=== PATIENT | female | born 1940 | race American Indian/Alaskan Native ===

== ENCOUNTER 2018-05-23 01:07 | Emergency (ER) | payer OTHER ==
[2018-05-23] MEDS ORDERED: ASPIRIN PO ONE (01:31)
[2018-05-23 02:05] LABS: Basophils % (Auto) 0.6 % (0.0-1.8); Eosinophils # (Auto) 0.1 K/mm3 (0.0-0.4); Eosinophils % (Auto) 1.9 % (0.0-4.3); Hematocrit 37.8 % (30.3-42.9); Lymphocytes # (Auto) 1.9 K/mm3 (1.2-5.4); Lymphocytes % (Auto) 28.3 % (13.4-35.0); Mean Corpuscular HGB Conc 32 % (30-34); Mean Corpuscular Volume 79 fl (79-97); Monocytes # (Auto) 0.3 K/mm3 (0.0-0.8); Monocytes % (Auto) 4.7 % (0.0-7.3); Platelet Count 267 K/mm3 (140-440); Red Blood Count 4.78 M/mm3 (3.65-5.03)
[2018-05-23 02:22] LABS: BUN/Creatinine Ratio 20; Blood Urea Nitrogen 12 mg/dL (7-17); Calcium 9.9 mg/dL (8.4-10.2); Hemolysis Index 2
[2018-05-23 02:25] LABS: INR 0.9 (0.87-1.13); Partial Thromboplastin Time 21.9 Sec. (24.2-36.6)
[2018-05-23] MEDS ORDERED: K-DUR PO ONE (03:15)
--- NOTE | 2018-05-23 03:31 | Emergency Department Report ---
ED Dizziness HPI - General Chief Complaint: High BP Stated Complaint: LIGHT HEADED/BLOOD PRESSURE Time Seen by Provider: 05/23/18 02:17 Source: patient Mode of arrival: Ambulatory Limitations: No Limitations - History of Present Illness Initial Comments: 78-year-old female with a past medical history of hypertension and arthritis presents to the Hospital complaining of lightheadedness and woozy feeling this evening. Similar symptoms in the past for her blood pressure was elevated. She attempted to go to the fire station to have her blood pressure checked but they were closed. She denies headache, chest pain, shortness of breath, blurred vision, focal numbness, focal weakness, nausea, vomiting, melena, hematochezia, or dysuria. Patient is compliant with her blood pressure medication. She did state that today she went to a restaurant with her druze group where she ate a lot more salty food than usual and then took leftovers home and ate them this evening. At time of my ED evaluation blood pressure has spontaneously improved without additional treatment. Patient reports feeling better. - Related Data Home Medications Medication Instructions Recorded Confirmed Last Taken Amlodipine Besylate/Benazepril 1 tab PO DAILY 04/18/14 07/30/15 08/07/15 08:10 [Lotrel 10-20 mg] Metoprolol Xl [Metoprolol 100 mg PO QDAY 04/18/14 07/30/15 08/07/15 08:10 SUCCINATE ER TAB] Triamter/Hctz 37.5-25 mg 1 tab PO DAILY 04/18/14 08/07/15 08/07/15 08:10 [Maxzide-25] Dorzolamide HCl/Timolol Maleat 1 drop OP Q12H 07/30/15 07/30/15 08/07/15 08:10 [Dorzolamide-Timolol Eye Drops] Previous Rx's Medication Instructions Recorded Last Taken Type Cyclobenzaprine [Flexeril] 10 mg PO TID PRN #30 tablet 02/14/16 Unknown Rx Ibuprofen [Motrin 800 MG tab] 800 mg PO Q8HR PRN #30 tablet 02/14/16 Unknown Rx Allergies Allergy/AdvReac Type Severity Reaction Status Date / Time Penicillins Allergy Rash Verified 04/18/14 23:52 codeine AdvReac Nausea Verified 04/18/14 23:52 ED Review of Systems ROS: Stated complaint: LIGHT HEADED/BLOOD PRESSURE Other details as noted in HPI Comment: All other systems reviewed and negative ED Past Medical Hx - Past Medical History Previous Medical History?: Yes Hx Hypertension: Yes (FOR 20+ YRS, DR. SEAY- PCP) Hx Heart Attack/AMI: No Hx Renal Disease: No Hx Arthritis: Yes (IN HANDS) Hx Seizures: No Hx Asthma: No Hx HIV: No - Surgical History Hx Breast Surgery: Yes (LEFT BREAST BX 04/2015) Additional Surgical History: hysterectomy 1986. left breast biopsy - Social History Smoking Status: Never Smoker Substance Use Type: None - Medications Home Medications: Home Medications Medication Instructions Recorded Confirmed Last Taken Type Amlodipine Besylate/Benazepril 1 tab PO DAILY 04/18/14 07/30/15 08/07/15 08:10 History [Lotrel 10-20 mg] Metoprolol Xl [Metoprolol 100 mg PO QDAY 04/18/14 07/30/15 08/07/15 08:10 History SUCCINATE ER TAB] Triamter/Hctz 37.5-25 mg 1 tab PO DAILY 04/18/14 08/07/15 08/07/15 08:10 History [Maxzide-25] Dorzolamide HCl/Timolol Maleat 1 drop OP Q12H 07/30/15 07/30/15 08/07/15 08:10 History [Dorzolamide-Timolol Eye Drops] Cyclobenzaprine [Flexeril] 10 mg PO TID PRN #30 tablet 02/14/16 Unknown Rx Ibuprofen [Motrin 800 MG tab] 800 mg PO Q8HR PRN #30 tablet 02/14/16 Unknown Rx ED Physical Exam - General Limitations: No Limitations - Other Other exam information: General: No limitations, patient is alert in no acute distress Head exam: Atraumatic, normocephalic Eyes exam: Normal appearance, pupils equal reactive to light, extraocular movements intact, mild bilateral lateral fatigue nystagmus. ENT: Moist mucous membrane Neck exam: Normal inspection, full range of motion, no meningismus nontender Respiratory exam: Clear to auscultation bilateral, no wheezes, rales, crackles Cardiovascular: Normal rate and rhythm Abdomen: Soft, nondistended, and nontender, with normal bowel sounds, no rebound, or guarding Extremity: Full range of motion normal inspection no deformity Back: Normal Inspection, full range of motion, no tenderness Neurologic: Alert, oriented x3, cranial nerves intact, no motor or sensory deficit, [id number] function intact. Psychiatric: normal affect, normal mood Skin: Warm, dry, intact ED Course Vital Signs 05/23/18 05/23/18 05/23/18 01:20 01:29 02:02 Temperature 98.3 F Pulse Rate 94 H 94 H Respiratory 20 20 18 Rate Blood Pressure 165/111 Blood Pressure 168/98 [Left] Blood Pressure 165/111 [Right] O2 Sat by Pulse 99 99 98 Oximetry 05/23/18 05/23/18 05/23/18 02:09 02:16 02:20 Temperature Pulse Rate 88 75 Respiratory 14 10 L 16 Rate Blood Pressure 156/85 Blood Pressure [Left] Blood Pressure [Right] O2 Sat by Pulse 99 99 Oximetry 05/23/18 05/23/18 05/23/18 02:46 03:00 03:16 Temperature Pulse Rate 85 71 Respiratory 19 13 Rate Blood Pressure 143/77 145/77 145/77 Blood Pressure [Left] Blood Pressure [Right] O2 Sat by Pulse 98 97 97 Oximetry 05/23/18 03:46 Temperature Pulse Rate Respiratory Rate Blood Pressure 137/76 Blood Pressure [Left] Blood Pressure [Right] O2 Sat by Pulse 97 Oximetry ED Medical Decision Making - Lab Data Result diagrams: 05/23/18 01:43 05/23/18 01:43 Lab Results 05/23/18 05/23/18 05/23/18 Range/Units 01:43 01:43 01:43 WBC 6.8 (4.5-11.0) K/mm3 RBC 4.78 (3.65-5.03) M/mm3 Hgb 12.0 (10.1-14.3) gm/dl Hct 37.8 (30.3-42.9) % MCV 79 (79-97) fl MCH 25 L (28-32) pg MCHC 32 (30-34) % RDW 16.0 H (13.2-15.2) % Plt Count 267 (140-440) K/mm3 Lymph % (Auto) 28.3 (13.4-35.0) % [place] % (Auto) 4.7 (0.0-7.3) % Eos % (Auto) 1.9 (0.0-4.3) % Baso % (Auto) 0.6 (0.0-1.8) % Lymph # 1.9 (1.2-5.4) K/mm3 [place] # 0.3 (0.0-0.8) K/mm3 Eos # 0.1 (0.0-0.4) K/mm3 Baso # 0.0 (0.0-0.1) K/mm3 Seg Neutrophils % 64.5 (40.0-70.0) % Seg Neutrophils # 4.4 (1.8-7.7) K/mm3 PT 12.5 (12.2-14.9) Sec. INR 0.90 (0.87-1.13) APTT 21.9 L (24.2-36.6) Sec. Sodium 137 (137-145) mmol/L Potassium 3.4 L (3.6-5.0) mmol/L Chloride 96.8 L (98-107) mmol/L Carbon Dioxide 28 (22-30) mmol/L Anion Gap 16 mmol/L BUN 12 (7-17) mg/dL Creatinine 0.6 L (0.7-1.2) mg/dL Estimated GFR > 60 ml/min BUN/Creatinine Ratio 20 % Glucose 97 (65-100) mg/dL Calcium 9.9 (8.4-10.2) mg/dL Troponin T < 0.010 (0.00-0.029) ng/mL - Medical Decision Making BP spontaneously improved without any medication and patient feeling better. Increased BP is likely related to dietary changes/increased salt intake. Labs unremarkable with exception of mild hypokalemia. Patient sees associated by mouth potassium in the ED. EKG is unchanged from previous. Patient will be discharged home with PMD follow-up. - Differential Diagnosis hypertensive emergency, CVA, anemia, dehydration, arrhythmia Critical Care Time: No Critical care attestation.: If time is entered above; I have spent that time in minutes in the direct care of this critically ill patient, excluding procedure time. ED Disposition Clinical Impression: Transient hypertension, Lightheaded Disposition: DC-01 TO HOME OR SELFCARE Is pt being admited?: No Does the pt Need Aspirin: No Condition: Stable Instructions: Hypertension (ED), Lightheadedness (ED) Additional Instructions: Continue your medication as prescribed. Decrease your salt intake. Follow up with your doctor. Return if symptoms worsen as indicated by your discharge instructions Referrals: PRIMARY CARE, [Primary Care Provider] - 3-5 Days Time of Disposition: 04:18 - Assessment Assessment Interval: Baseline - Level of Consciousness 1a. Level of Consciousness: alert/keenly responsive - LOC Questions 1b. LOC Questions: answers both correctly - LOC Command 1c. LOC Commands: performs tasks correctly - Best Gaze 2. Best Gaze: normal - Visual 3. Visual: no visual loss - Facial Palsy 4. Facial Palsy: normal symmetrical movement - Motor Arm 5b. Motor Arm Right: no drift 5a. Motor Arm Left: no drift - Motor Leg 6b. Motor Leg Right: no drift 6a. Motor Leg Left: no drift - Limb Ataxia 7. Limb Ataxia: absent - Sensory 8. Sensory: normal - Best Language 9. Best Language: no aphasia - Dysarthria 10. Dysarthria: normal - Extinction and Inattention 11. Extinction/Inattention: no abnormality - Scoring Total Score: 0 Stroke Severity: No Stroke Symptoms
[2018-05-23 04:32] VITALS: BP 158/86
== END 2018-05-23 04:30 | disposition home or self-care (01) ==
LOC: ED 01:07
DX: I10 Essential (primary) hypertension (principal); M19.042 Primary osteoarthritis, left hand; M19.041 Primary osteoarthritis, right hand; Z90.710 Acquired absence of both cervix and uterus; Z88.0 Allergy status to penicillin; Z88.5 Allergy status to narcotic agent
CPT/HCPCS: 36415; 80048; 84484; 85025; 85610; 85730; 93005; 93010

== ENCOUNTER 2019-05-28 18:13 | Emergency (ER) | payer OTHER ==
--- NOTE | 2019-05-28 19:07 | Event Note ---
ED Screening Note Date of service: 05/28/19 Time: 19:02 ED Screening Note: Pt complains of right lower back/hip pain x this morning denies injury hx of breast cancer This initial assessment/diagnostic orders/clinical plan/treatment(s) is/are subject to change based on patients health status, clinical progression and re- assessment by fellow clinical providers in the ED. Further treatment and workup at subsequent clinical providers discretion. Patient/guardian urged not to elope from the ED as their condition may be serious if not clinically assessed and managed. Initial orders include: XR
[2019-05-28] MEDS ORDERED: IBUPROFEN 600 MG TAB PO ONE ×2 (19:08→19:13)
--- NOTE | 2019-05-28 19:51 | XRay Report ---
LEFT HIP 3 VIEWS INDICATION / CLINICAL INFORMATION: MAIN: rt hip pain no injury COMPARISON: None available. FINDINGS: BONES / JOINT(S): No acute fracture or subluxation. Well-corticated ossification adjacent to the grea ter trochanter. No significant arthritis. SOFT TISSUES: No significant abnormality. ADDITIONAL FINDINGS: None. Signer Name: Dioni Eldrideg MD Signed: 05/28/2019 7:46 PM Workstation Name: [id number]
[2019-05-28] MEDS ORDERED: predniSONE 20 MG TAB PO ONE (23:14)
[2019-05-28] MEDS ORDERED: ACETAMINOPHEN 500 MG TAB PO ONE (23:15)
--- NOTE | 2019-05-29 00:27 | Emergency Department Report ---
ED Extremity Problem HPI - General Chief complaint: Extremity Problem,Nontraumatic Stated complaint: RT HIP PAIN Time Seen by Provider: 05/28/19 19:02 Source: patient Mode of arrival: Ambulatory Limitations: No Limitations - History of Present Illness Initial comments: Patient is a 79-year-old -[place] female with a history of hypertension and degenerative joint disease who presents to the ED with complaint of acute onset persistent severe nontraumatic right hip pain for the last 2 days. Patient states that the pain is worse with any movement or even at rest. Patient denies fall, traumatic injury, heavy lifting, nausea, vomiting, dizziness, chest pain, shortness of breath, fever, chills, dysuria, urinary frequency and urgency, numbness and tingling or weakness of lower extremities bilaterally. Patient states that her house has 14 stairs and that she has to climb up and down the stairs daily. MD Complaint: extremity pain (right hip pain) -: Sudden, days(s) (2) Location: right, lower extremity (hip) History of Same: No -: Yes arthralgia (right hip) Radiation: proximal Severity scale (0 -10): 7 Quality: aching, sharp, constant Consistency: constant Improves with: rest Worsens with: weight bearing, walking, exertion, palpation Associated Symptoms: denies other symptoms, arthralgias (right hip). denies: chest pain, shortness of breath - Related Data Home Medications Medication Instructions Recorded Confirmed Last Taken Amlodipine Besylate/Benazepril 1 tab PO DAILY 04/18/14 07/30/15 08/07/15 08:10 [Lotrel 10-20 mg] Metoprolol Xl [Metoprolol 100 mg PO QDAY 04/18/14 07/30/15 08/07/15 08:10 SUCCINATE ER TAB] Triamter/Hctz 37.5-25 mg 1 tab PO DAILY 04/18/14 08/07/15 08/07/15 08:10 [Maxzide-25] Dorzolamide HCl/Timolol Maleat 1 drop OP Q12H 07/30/15 07/30/15 08/07/15 08:10 [Dorzolamide-Timolol Eye Drops] Previous Rx's Medication Instructions Recorded Last Taken Type Cyclobenzaprine [Flexeril] 10 mg PO TID PRN #30 tablet 02/14/16 Unknown Rx Ibuprofen [Motrin 800 MG tab] 800 mg PO Q8HR PRN #30 tablet 02/14/16 Unknown Rx Meloxicam [Mobic] 7.5 mg PO QDAY #30 tablet 05/29/19 Unknown Rx Ondansetron [Zofran Odt] 4 mg PO Q6H PRN #20 tab.rapdis 05/29/19 Unknown Rx predniSONE [Deltasone] 40 mg PO QDAY #10 tab 05/29/19 Unknown Rx traMADoL [Ultram] 50 mg PO Q6HR PRN #12 tablet 05/29/19 Unknown Rx Allergies Allergy/AdvReac Type Severity Reaction Status Date / Time Penicillins Allergy Rash Verified 04/18/14 23:52 codeine AdvReac Nausea Verified 04/18/14 23:52 ED Review of Systems ROS: Stated complaint: RT HIP PAIN Other details as noted in HPI Constitutional: denies: chills, fever Eyes: denies: eye pain, eye discharge, vision change ENT: denies: ear pain, throat pain Respiratory: denies: cough, shortness of breath, wheezing Cardiovascular: denies: chest pain, palpitations Endocrine: no symptoms reported Gastrointestinal: denies: abdominal pain, nausea, diarrhea Genitourinary: denies: urgency, dysuria, discharge Musculoskeletal: arthralgia (right hip pain), myalgia. denies: back pain, joint swelling Skin: denies: rash, lesions Neurological: denies: headache, weakness, paresthesias Psychiatric: denies: anxiety, depression Hematological/Lymphatic: denies: easy bleeding, easy bruising ED Past Medical Hx - Past Medical History Hx Hypertension: Yes (FOR 20+ YRS, DR. SEAY- PCP) Hx Arthritis: Yes (IN HANDS) Hx HIV: No - Surgical History Hx Breast Surgery: Yes (LEFT BREAST BX 04/2015) Additional Surgical History: hysterectomy 1986. left breast biopsy - Social History Smoking Status: Never Smoker Substance Use Type: None - Medications Home Medications: Home Medications Medication Instructions Recorded Confirmed Last Taken Type Amlodipine Besylate/Benazepril 1 tab PO DAILY 04/18/14 07/30/15 08/07/15 08:10 History [Lotrel 10-20 mg] Metoprolol Xl [Metoprolol 100 mg PO QDAY 04/18/14 07/30/15 08/07/15 08:10 History SUCCINATE ER TAB] Triamter/Hctz 37.5-25 mg 1 tab PO DAILY 04/18/14 08/07/15 08/07/15 08:10 History [Maxzide-25] Dorzolamide HCl/Timolol Maleat 1 drop OP Q12H 07/30/15 07/30/15 08/07/15 08:10 History [Dorzolamide-Timolol Eye Drops] Cyclobenzaprine [Flexeril] 10 mg PO TID PRN #30 tablet 02/14/16 Unknown Rx Ibuprofen [Motrin 800 MG tab] 800 mg PO Q8HR PRN #30 tablet 02/14/16 Unknown Rx Meloxicam [Mobic] 7.5 mg PO QDAY #30 tablet 05/29/19 Unknown Rx Ondansetron [Zofran Odt] 4 mg PO Q6H PRN #20 tab.rapdis 05/29/19 Unknown Rx predniSONE [Deltasone] 40 mg PO QDAY #10 tab 05/29/19 Unknown Rx traMADoL [Ultram] 50 mg PO Q6HR PRN #12 tablet 05/29/19 Unknown Rx ED Physical Exam - General Limitations: No Limitations General appearance: alert, in no apparent distress - Head Head exam: Present: atraumatic, normocephalic, normal inspection - Eye Eye exam: Present: normal appearance, PERRL, EOMI Pupils: Present: normal accommodation - ENT ENT exam: Present: normal exam, normal orophraynx, mucous membranes moist, TM's normal bilaterally, normal external ear exam - Neck Neck exam: Present: normal inspection, full ROM - Respiratory Respiratory exam: Present: normal lung sounds bilaterally. Absent: respiratory distress, wheezes, rales, rhonchi, chest wall tenderness, decreased breath sounds, prolonged expiratory - Cardiovascular Cardiovascular Exam: Present: regular rate, normal rhythm, normal heart sounds. Absent: systolic murmur, diastolic murmur, rubs, gallop - GI/Abdominal GI/Abdominal exam: Present: soft, normal bowel sounds. Absent: tenderness, guarding, rebound, hyperactive bowel sounds, hypoactive bowel sounds, organomegaly, mass - Extremities Exam Extremities exam: Present: normal inspection, tenderness (palpable right hip tenderness with limited range of motion due to pain), normal capillary refill. Absent: full ROM (Limited range of motion due to pain on the right hip), pedal edema, joint swelling, calf tenderness - Back Exam Back exam: Present: normal inspection, full ROM. Absent: tenderness, CVA tenderness (R), CVA tenderness (L), muscle spasm, paraspinal tenderness, vertebral tenderness - Neurological Exam Neurological exam: Present: alert, oriented X3, CN II-XII intact, normal gait, r eflexes normal - Psychiatric Psychiatric exam: Present: normal affect, normal mood - Skin Skin exam: Present: warm, dry, intact, normal color. Absent: rash ED Course Vital Signs 05/28/19 05/28/19 05/28/19 19:03 19:37 20:37 Temperature 98.3 F Pulse Rate 87 Respiratory 18 18 16 Rate Blood Pressure 143/81 O2 Sat by Pulse 99 Oximetry 05/28/19 23:40 Temperature Pulse Rate Respiratory 16 Rate Blood Pressure O2 Sat by Pulse Oximetry ED Medical Decision Making - Radiology Data Radiology results: report reviewed, image reviewed Right hip x-ray shows no acute fractures or subluxations or degenerative joint disease. - Medical Decision Making This is a 79-year-old -[place] female who presented to the ED with acute onset persistent nontraumatic right hip pain for the last 2 days. In the ED, patient is alert and oriented 3 and is not in any distress but appears to be in significant pain. Right hip x-ray shows no acute fractures or subluxations or significant degenerative joint disease. Patient was treated for pain in the ED and on reevaluation, patient's pain is moderately controlled. Patient's symptoms are likely due to acute bursitis of the right hip and muscle strength. Patient was discharged home on pain medications and advised to follow-up with her primary care physician in 5-7 days for reevaluation or return to the ED immediately if symptoms get worse. - Differential Diagnosis Hip bursitis; Muscle strain; DJD; Hip fracture; Muscle spasm Critical care attestation.: If time is entered above; I have spent that time in minutes in the direct care of this critically ill patient, excluding procedure time. ED Disposition Clinical Impression: Bursitis of right hip Qualifiers: Hip bursitis location: unspecified Qualified Code(s): M70.71 - Other bursitis of hip, right hip Strain of muscle of right hip Qualifiers: Encounter type: initial encounter Qualified Code(s): S76.011A - Strain of muscle, fascia and tendon of right hip, initial encounter Disposition: TO HOME OR SELFCARE Is pt being admited?: No Does the pt Need Aspirin: No Condition: Stable Additional Instructions: Take medication with food, drink plenty of fluids and follow-up with your primary care physician in 7-10 days for reevaluation. Return to the ED immediately if symptoms get worse. Prescriptions: predniSONE [Deltasone] 40 mg PO QDAY #10 tab Meloxicam [Mobic] 7.5 mg PO QDAY #30 tablet traMADoL [Ultram] 50 mg PO Q6HR PRN #12 tablet PRN Reason: Pain Ondansetron [Zofran Odt] 4 mg PO Q6H PRN #20 tab.rapdis PRN Reason: Nausea Referrals: RODY DAILY MD [Staff Physician] - 7-10 days Time of Disposition: 00:27 Print Language: ROMANSH
[2019-05-29 01:04] VITALS: BP 157/87
== END 2019-05-29 01:05 | disposition home or self-care (01) ==
LOC: ED 18:13
DX: S76.011A Strain of muscle, fascia and tendon of right hip, initial encounter (principal); M70.71 Other bursitis of hip, right hip; I10 Essential (primary) hypertension; Z90.710 Acquired absence of both cervix and uterus; Z98.890 Other specified postprocedural states; Z88.0 Allergy status to penicillin; Z88.8 Allergy status to other drugs, medicaments and biological substances; Z79.899 Other long term (current) drug therapy; X58.XXXA Exposure to other specified factors, initial encounter; Y93.89 Activity, other specified; Y92.89 Other specified places as the place of occurrence of the external cause; Y99.8 Other external cause status
CPT/HCPCS: 73502; 99283; J7512